=== PATIENT | male | born 2000 | race Caucasian/White ===

== ENCOUNTER 2021-02-18 22:30 | Emergency (ER) | payer MEDICAID ==
[~2021-02-18] VITALS: Ht 177.8 cm; Wt 122.5 kg
[2021-02-18 22:36] VITALS: BP 135/66
--- NOTE | 2021-02-18 22:38 | NUR ---
to lobby a/w bed ambulatory
--- NOTE | 2021-02-19 00:37 | NUR ---
PT TAKEN TO BED 8
[2021-02-19 00:41] VITALS: BP 135/64
--- NOTE | 2021-02-19 00:42 | NUR ---
20 Y/O MALE PRESENTED TO ED C/O HEADACHE X 2 DAYS. PT DESCRIBES PAIN THROBBING ON FRONTAL AREA OF HEAD. PT DENIES BLURRY VISION, STATES HE DOES HAVE SOME NAUSEA. PT SECONDARY C/O OF NONPRODUCTIVE COUGH, BODY ACHES BUT DENIES ANY FEVER OR CHILLS. RR EVEN AND UNLABORED. BL LUNG SOUNDS CLEAR THROUGHOUT. OXYGEN LEVEL 95% ON ROOM AIR. PT SITTING UP IN BED, LOCKED AND IN LOWEST POSITION, HOB ELEVATED, SIDE RAIL X1. VSS. NO ACUTE DISTRESS NOTED. ERMD MADE AWARE. PMH: DENIES NKA
--- NOTE | 2021-02-19 01:28 | NUR ---
Patient discharged with v/s stable. Written and verbal after care instructions given and explained. Patient verbalized understanding. Ambulatory with steady gait. All questions addressed prior to discharge. Advised to follow up with PMD.
[2021-02-20] MEDS ORDERED: ONDA4ODT2 PO (23:26)
[2021-02-20] MEDS ORDERED: MAG355OR2 PO (23:26)
== END 2021-02-19 01:28 | disposition home or self-care (01) ==
LOC: MED 22:30
DX: R51.9 Headache, unspecified (principal); Z20.822 Contact with and (suspected) exposure to COVID-19; R05 Cough; M79.10 Myalgia, unspecified site
CPT/HCPCS: 71045; 99284; U0003

== ENCOUNTER 2021-02-20 19:26 | Emergency (ER) | payer MEDICAID ==
[~2021-02-20] VITALS: Ht 177.8 cm; Wt 127.0 kg
[2021-02-20 19:48] VITALS: BP 116/75
--- NOTE | 2021-02-20 19:50 | NUR ---
PT TO AWAIT IN LOBBY, AMBULATORY
[2021-02-20 20:50] LABS: BASOPHILS # (AUTO) 0.1 K/uL (0.00-0.22); BASOPHILS % (AUTO) 0.6 % (0.0-2.0); EOSINOPHILS # (AUTO) 0.4 K/uL (0-0.4); EOSINOPHILS % (AUTO) 4.1 % (0.0-4.0); HEMATOCRIT 44.4 % (36-52); HEMOGLOBIN 15.6 g/dL (12.0-18.0); LYMPHOCYTES % (AUTO) 28.2 % (20.5-51.1); MEAN CORPUSCULAR HEMOGLOBIN 29 pg (27-31); MEAN CORPUSCULAR HGB CONC 35 g/dL (33-37); MEAN CORPUSCULAR VOLUME 81.9 fL (80-94); MONOCYTES # (AUTO) 0.7 K/uL (0.8-1.0); MONOCYTES % (AUTO) 6.4 % (1.7-9.3); NEUTROPHILS # (AUTO) 6.3 K/uL (1.8-7.7); NEUTROPHILS % (AUTO) 60.7 % (42.2-75.2); PLATELET COUNT (AUTO) 232 K/uL (140-450); RED BLOOD CELL COUNT(AUTO) 5.41 MIL/uL (4.20-6.10); RED CELL DISTRIBUTION WIDTH 13.6 % (11.6-13.7); WHITE BLOOD COUNT (AUTO) 10.5 K/uL (4.8-10.8)
[2021-02-20 21:16] LABS: ALBUMIN 3.7 g/dL (3.4-5.0); ANION GAP 13.1 (8-16); CARBON DIOXIDE 25.3 mmol/L (21-32); CREATININE 0.9 mg/dL (0.6-1.3); POTASSIUM 3.4 mmol/L (3.5-5.1); TOTAL BILIRUBIN 0.4 mg/dL (0.0-1.0)
--- NOTE | 2021-02-20 21:20 | NUR ---
20 Y/O MALE CAME TO THE ED FOR LEFT UPPER ABDOMINAL PAIN. DENIES N/V/D; SKIN IS PINK/WARM/DRY; AAOX4 WITH EVEN AND STEADY GAIT; LUNGS CLEAR BL; HR EVEN AND REGULAR; PT DENIES ANY FEVER, CP, SOB, OR COUGH AT THIS TIME; PATIENT STATES SHARP PAIN OF 8/10 AT THIS TIME; VSS; PATIENT POSITIONED FOR COMFORT; HOB ELEVATED; BEDRAILS UP X2; BED DOWN. ER MD MADE AWARE OF PT STATUS. PMH: DENIES NKA
[2021-02-20 21:49] LABS: APPEARANCE,URINE CLEAR (CLEAR); BILIRUBIN,URINE NEGATIVE (NEGATIVE); BLOOD, URINE NEGATIVE (NEGATIVE); COLOR,URINE YELLOW (YELLOW); LEUKOCYTE ESTERASE ,URINE NEGATIVE (NEGATIVE); NITRITE, URINE NEGATIVE (NEGATIVE); UGLUCOSE NEGATIVE (NEGATIVE)
[2021-02-20] MEDS ORDERED: DICYCLOMINE HCL LIQUID 20 MG, ALUMINUM HYD/MAG/SIMETHICONE 30 ML, LIDOCAINE VISCOUS 2% ... PO ONE ×3 (22:15)
[2021-02-20] MEDS ORDERED: ONDANSETRON 4 MG ODT PO ONE (22:15)
--- NOTE | 2021-02-20 23:00 | NUR ---
COLLECTED JADE SWAB
[2021-02-20] MEDS ORDERED: ALUMINUM HYD/MAG/SIMETHICONE 30 ML UDC ONE ×2 (23:02→23:04)
[2021-02-20] MEDS ORDERED: DICYCLOMINE HCL LIQUID 10 MG/5 ML UDC ONE ×2 (23:02→23:04)
[2021-02-20] MEDS ORDERED: LIDOCAINE VISCOUS 2% 20 ML UDC ONE ×2 (23:02→23:04)
[2021-02-20] MEDS ORDERED: MAG355OR2 PO (23:26)
[2021-02-20] MEDS ORDERED: ONDA4ODT2 PO (23:26)
[2021-02-20 23:48] VITALS: BP 136/52
--- NOTE | 2021-02-20 23:48 | NUR ---
Patient discharged with v/s stable. Written and verbal after care instructions given and explained. Patient alert, oriented and verbalized understanding of instructions. Ambulatory with steady gait. All questions addressed prior to discharge. ID band removed. Patient advised to follow up with PMD. Rx of MAALOX MAXIMUM STRENGTH SUSP AND ONDANSETRON given. Patient educated on indication of medication including possible reaction and side effects. Opportunity to ask questions provided and answered.
== END 2021-02-20 23:48 | disposition home or self-care (01) ==
LOC: MED 19:26
DX: K85.90 Acute pancreatitis without necrosis or infection, unspecified (principal); F17.210 Nicotine dependence, cigarettes, uncomplicated; Z79.899 Other long term (current) drug therapy
CPT/HCPCS: 36415; 80053; 81003; 82150; 83690; 85025; 99283; Q0162

== ENCOUNTER 2022-04-28 14:54 | Emergency (ER) | payer SELFPAY ==
[~2022-04-28] VITALS: Ht 177.8 cm; Wt 99.8 kg
[~2022-04-28 14:54] MED LIST: MAG355OR2 PO; ONDA4ODT2 PO
[2022-04-28 15:08] VITALS: BP 127/82
--- NOTE | 2022-04-28 17:00 | NUR ---
ATTEMPTED TO CALL BACK PATIENT TO BE MEDICATED AND SEEN BY MELANIE GARCIA PT NOT SEEN IN THE LOBBY OR IN THE ADJACENT AREAS
[2022-04-28] MEDS ORDERED: KETOROLAC 30 MG/ML VIAL IM ONE (17:10)
--- NOTE | 2022-04-28 17:30 | NUR ---
ATTEMPTED TO CALL PT, NO RESPONSE
--- NOTE | 2022-04-28 18:00 | NUR ---
ATTEMPTED TO CALL PT, PA INFORMED, PT LEFT WITHOUT BEING SEEN AND MEDICATED
== END 2022-04-28 17:00 | disposition left against medical advice (07) ==
LOC: MED 14:54
DX: R31.9 Hematuria, unspecified (principal); M54.9 Dorsalgia, unspecified; Z79.899 Other long term (current) drug therapy
CPT/HCPCS: 81002; 99281; 99282